=== PATIENT | male | born 1940 | race Caucasian/White ===

== ENCOUNTER 2017-11-11 21:41 | Emergency (ER) | payer OTHER ==
[~2017-11-11] VITALS: Ht 1767 cm; Wt 90.7 kg
[2017-11-11] MEDS ORDERED: HYDROCHLOROTH12.5 M2 PO (21:56)
[2017-11-11] MEDS ORDERED: NEURONTIN300 MG PO (21:57)
[2017-11-11] MEDS ORDERED: PANTOPRAZOLE SO40 MG PO (21:57)
[2017-11-11] MEDS ORDERED: RAMIPRIL10 MG PO (21:57)
[2017-11-11] MEDS ORDERED: TAMSULOSIN HCL0.4 MG PO (21:58)
[2017-11-11] MEDS ORDERED: LASIX20 MG PO (21:58)
[2017-11-11] MEDS ORDERED: NITROSTAT0.4 MG SL (21:59)
[2017-11-11] MEDS ORDERED: METOPROLOL TART50 M1 PO (22:00)
[2017-11-11] MEDS ORDERED: VESICARE5 MG PO (22:00)
[2017-11-11] MEDS ORDERED: LIPITOR40 MG PO (22:01)
[2017-11-11] MEDS ORDERED: SYMB160 INH (22:01)
[2017-11-11 22:27] LABS: BASO % 0.5 % (0.0-1.0); EOS # 0.1 10*3/uL (0.0-0.4); HEMATOCRIT 35.1 % (42.0-52.0); HEMOGLOBIN 11.1 g/dl (14.0-18.0); LYMPH # 0.9 10*3/uL (1.3-4.4); LYMPH % 11.9 % (27.0-41.0); MEAN CELL VOLUME 96.7 fl (80.0-94.0); MEAN CORPUSCULAR HGB 30.6 pg (27.0-31.0); MEAN CORPUSCULAR HGB CONC 31.6 g/dl (33.0-37.0); MEAN PLATELET VOLUME 12.4 fl (9.6-12.3); MONO # 1.3 10*3/uL (0.1-1.0); MONO % 17.4 % (3.0-9.0); NEUT # 4.9 10*3/uL (2.3-7.9); NEUT % 67.3 % (47.0-73.0); PLATELET COUNT AUTOMATED 108 10*3/uL (130-400); RED BLOOD COUNT 3.63 10*6/uL (4.50-5.90); RED CELL DISTRI WIDTH 14.6 % (0-14.5); WHITE BLOOD COUNT 7.3 10*3/uL (4.8-10.8)
[2017-11-11 22:41] LABS: CREATININE 2.62 mg/dL (0.70-1.30)
== END 2017-11-12 01:38 | disposition short-term general hospital (02) ==
LOC: ED 21:41
PROVIDERS: Emergency Medicine Emergency Medical Services
DX: S72.145A Nondisplaced intertrochanteric fracture of left femur, initial encounter for closed fracture (principal); Z79.899 Other long term (current) drug therapy; W07.XXXA Fall from chair, initial encounter; Y93.89 Activity, other specified; Y92.89 Other specified places as the place of occurrence of the external cause; Y99.8 Other external cause status